=== PATIENT | male | born 1970 | race Caucasian/White ===

== ENCOUNTER → 2017-03-08 21:34 | Emergency (ER) | payer OTHER ==
[~2017-03-08 21:34] MED LIST: Midazolam 2 MG/2 ML VIAL ONE; Propofol 10 mg/ml Inj (20 ML) ONE
== END | disposition left against medical advice (07) ==
LOC: C.ER 21:34
DX: F19.10 Other psychoactive substance abuse, uncomplicated (principal); Z02.9 Encounter for administrative examinations, unspecified

== ENCOUNTER 2017-03-08 22:54 | Observation (INO) | payer SELFPAY ==
--- NOTE | 2017-03-09 01:21 | C.PDOC ---
History Of Present Illness Patient is a 46 year old male BIBA after he was found intoxicated and sleeping in the streets. Patient has no physical complaints at this time. Chief Complaint (Nursing): Substance Abuse History Per: Patient History/Exam Limitations: no limitations Onset/Duration Of Symptoms: Hrs Current Symptoms Are (Timing): Still Present Suicide/Self Injury Attempted (Context): None Modifying Factor(s): Alcohol Associated Symptoms: denies: Depression, Suicidal Thoughts, Suicidal Plan Involuntary Hold By: None Recent travel outside of the [place]: No Past Medical History Reviewed: Historical Data, Nursing Documentation, Vital Signs Vital Signs: Last Vital Signs Temp 98.4 F 03/09/17 03:16 Pulse 92 H 03/09/17 03:16 Resp 16 03/09/17 03:16 BP 116/80 03/09/17 03:16 Pulse Ox 97 03/09/17 03:16 - Medical History PMH: Cardia Arrhythmia, HTN, Hypercholesterolemia, Pneumonia - [facility] Procedures CLOSED ENDOSCOPIC BIOPSY OF LARGE INTESTINE (01/19/15) ENDOSC POLYPECTOMY OF LG INTEST (01/19/15) ESOPHAGOGASTRODUODENOSCOPY [EGD] W/CLOSED BIOPSY (01/19/15) OTHER ENDOSCOPY OF SM INTEST (12/07/14) VACCINATION NEC (01/19/15) Family History: States: Unknown Family Hx - Social History Hx Tobacco Use: No Hx Alcohol Use: Yes Hx Substance Use: No - Immunization History Hx Tetanus Toxoid Vaccination: Yes Hx Influenza Vaccination: Yes Hx Pneumococcal Vaccination: No Review Of Systems Constitutional: Negative for: Fever, Chills Gastrointestinal: Negative for: Nausea, Vomiting, Diarrhea Neurological: Positive for: Other (ETOH intoxication) ED Course And Treatment O2 Sat by Pulse Oximetry: 97 Medical Decision Making Medical Decision Makinam: Patient is walking around ED. Patient to be discharged with f/u instructions. ED OBSERVATION Discharge: Yes Date of observation admission: 03/08/17 Time of observation admission: 23:25 - Observation admission statement Patient is being placed in observation because:: Acute ETOH intoxication - Goals of Observation Goals of observation are:: Sobriety Disposition - Disposition Disposition: HOME/ ROUTINE Disposition Time: 05:10 Condition: IMPROVED - Clinical Impression Clinical Impression: Alcohol intoxication - Scribe Statement The provider has reviewed the documentation as recorded by the Scribe Mina Toledo All medical record entries made by the Scribe were at my direction and personally dictated by me. I have reviewed the chart and agree that the record accurately reflects my personal performance of the history, physical exam, medical decision making, and the department course for this patient. I have also personally directed, reviewed, and agree with the discharge instructions and disposition.
[2017-03-09 05:15] VITALS: BP 117/77; PULSE 88; RESP 19; TEMP 98.5; O2SAT 96
== END 2017-03-09 05:10 | disposition home or self-care (01) ==
LOC: C.ER 22:54 → C.9OBSV 23:15
PROVIDERS: ADMIT Emergency Medicine; ATTEND Emergency Medicine
DX: F10.229 Alcohol dependence with intoxication, unspecified (principal); I49.9 Cardiac arrhythmia, unspecified; I10 Essential (primary) hypertension; E78.00 Pure hypercholesterolemia, unspecified
CPT/HCPCS: 82948; 99284; G0378

== ENCOUNTER 2018-10-24 19:46 | Emergency (ER) | payer SELFPAY ==
--- NOTE | 2018-10-24 21:01 | C.PDOC ---
History Of Present Illness Patient is a 48 year old male [employer] who presents to the ED for alcohol abuse. As per police, patient claims he wants to sleep at [employer] and did not want to come to the ED. Patient is handcuffed for bad behavior. He has had extensive prior evaluations for alcohol abuse. He denies any SI/HI, hallucinations, CP, SOB. Time Seen by Provider: 10/24/18 20:01 Chief Complaint (Nursing): Substance Abuse History Per: Patient, EMS History/Exam Limitations: intoxication Suicide/Self Injury Attempted (Context): None Modifying Factor(s): Alcohol Involuntary Hold By: Local Law Enforcement Recent travel outside of the [place]: No Additional History Per: Patient, EMS, Law Enforcement Past Medical History Reviewed: Historical Data, Nursing Documentation, Vital Signs Vital Signs: Last Vital Signs Temp 97.2 F L 10/24/18 19:59 Pulse 122 H 10/24/18 19:59 Resp 22 10/24/18 19:59 BP 128/74 10/24/18 19:59 Pulse Ox 98 10/24/18 19:59 - Medical History PMH: Cardia Arrhythmia, HTN, Hypercholesterolemia, Pneumonia Denies: Chronic Kidney Disease Surgical History: No Surg Hx - [facility] Procedures CLOSED ENDOSCOPIC BIOPSY OF LARGE INTESTINE (01/19/15) ENDOSC POLYPECTOMY OF LG INTEST (01/19/15) ESOPHAGOGASTRODUODENOSCOPY [EGD] W/CLOSED BIOPSY (01/19/15) OTHER ENDOSCOPY OF SM INTEST (12/07/14) VACCINATION NEC (01/19/15) Family History: States: Unknown Family Hx - Social History Hx Tobacco Use: No Hx Alcohol Use: Yes Hx Substance Use: No - Immunization History Hx Tetanus Toxoid Vaccination: Yes Hx Influenza Vaccination: Yes Hx Pneumococcal Vaccination: No Review Of Systems Cardiovascular: Negative for: Chest Pain Respiratory: Negative for: Shortness of Breath Psych: Negative for: Suicidal ideation, Other (homicidal ideations or hallucinations ) Physical Exam - Physical Exam Appears: Non-toxic, No Acute Distress, Other (alcohol on breath ) Skin: Normal Color, Warm, Dry Head: Atraumatic, Normacephalic Nose: Other (dried blood in nose ) Oral Mucosa: Moist Neck: Supple Chest: Symmetrical, No Deformity Cardiovascular: Rhythm Regular, No Murmur Respiratory: Normal Breath Sounds, No Rales, No Rhonchi, No Wheezing Gastrointestinal/Abdominal: Soft, No Tenderness, No Guarding, No Rebound Extremity: Normal ROM Neurological/Psych: Oriented x3 ED Course And Treatment O2 Sat by Pulse Oximetry: 98 (on RA) Pulse Ox Interpretation: Normal Reevaluation Time: 05:42 Reassessment Condition: Improved (clincally sober) Medical Decision Making Medical Decision Making: typical alcohol abuse Disposition Doctor Will See Patient In The: Office Counseled Patient/Family Regarding: Studies Performed, Diagnosis - Disposition Disposition: HOME/ ROUTINE Disposition Time: 05:44 Condition: GOOD Forms: [employer] (Portuguese) - Clinical Impression Clinical Impression: Alcohol abuse - Scribe Statement The provider has reviewed the documentation as recorded by the Eliseoibamador Shore All medical record entries made by the Eliseoibamador were at my direction and personally dictated by me. I have reviewed the chart and agree that the record accurately reflects my personal performance of the history, physical exam, medical decision making, and the department course for this patient. I have also personally directed, reviewed, and agree with the discharge instructions and disposition.
[2018-10-25 06:55] VITALS: BP 115/72; PULSE 75; RESP 18; TEMP 98.1; O2SAT 99
== END 2018-10-25 06:40 | disposition home or self-care (01) ==
LOC: C.ER 19:46
DX: F10.10 Alcohol abuse, uncomplicated (principal); Y90.9 Presence of alcohol in blood, level not specified

== ENCOUNTER 2018-11-22 18:27 | Emergency (ER) | payer SELFPAY ==
--- NOTE | 2018-11-22 20:14 | C.PDOC ---
History Of Present Illness 48 y/o male is brought in by ambulance for public intoxication. Patient has history of same and was seen many times before, most recent was 10/24/18. Patient has no physical complaints at this time. Time Seen by Provider: 11/22/18 18:33 Chief Complaint (Nursing): Substance Abuse History Per: EMS History/Exam Limitations: no limitations Onset/Duration Of Symptoms: Hrs Current Symptoms Are (Timing): Still Present Past Medical History Reviewed: Historical Data, Nursing Documentation, Vital Signs Vital Signs: Last Vital Signs Temp 98.1 F 11/22/18 18:36 Pulse 95 H 11/22/18 18:36 Resp 14 11/22/18 18:36 BP 126/77 11/22/18 18:36 Pulse Ox 98 11/22/18 18:36 - Medical History PMH: Cardia Arrhythmia, HTN, Hypercholesterolemia, Pneumonia Denies: Chronic Kidney Disease - [facility] Procedures CLOSED ENDOSCOPIC BIOPSY OF LARGE INTESTINE (01/19/15) ENDOSC POLYPECTOMY OF LG INTEST (01/19/15) ESOPHAGOGASTRODUODENOSCOPY [EGD] W/CLOSED BIOPSY (01/19/15) OTHER ENDOSCOPY OF SM INTEST (12/07/14) VACCINATION NEC (01/19/15) Family History: States: No Known Family Hx - Social History Hx Tobacco Use: No Hx Alcohol Use: Yes Hx Substance Use: No - Immunization History Hx Tetanus Toxoid Vaccination: Yes Hx Influenza Vaccination: Yes Hx Pneumococcal Vaccination: No Review Of Systems Except As Marked, All Systems Reviewed And Found Negative. Constitutional: Negative for: Fever, Chills Psych: Positive for: Other (alcohol intoxication) Physical Exam - Physical Exam Appears: Non-toxic, No Acute Distress Skin: Warm, Dry Head: Atraumatic, Normacephalic Eye(s): bilateral: Normal Inspection Oral Mucosa: Moist, Other (alcohol on breath) Neck: Supple Cardiovascular: Rhythm Regular, No Murmur Respiratory: Normal Breath Sounds, No Rales, No Rhonchi, No Wheezing Extremity: Bilateral: Atraumatic Neurological/Psych: Oriented x3, No Normal Speech (slurred speech) ED Course And Treatment O2 Sat by Pulse Oximetry: 98 (RA) Pulse Ox Interpretation: Normal Reevaluation Time: 21:31 Reassessment Condition: Improved Medical Decision Making Medical Decision Making: alcohol abuse Disposition Doctor Will See Patient In The: Office Counseled Patient/Family Regarding: Studies Performed, Diagnosis - Disposition Disposition: HOME/ ROUTINE Disposition Time: 21:31 Condition: GOOD Forms: [facility] (Swiss) - Clinical Impression Clinical Impression: Alcohol abuse - Scribe Statement The provider has reviewed the documentation as recorded by the Salina Burt Provider Attestation: All medical record entries made by the Salina were at my direction and personally dictated by me. I have reviewed the chart and agree that the record accurately reflects my personal performance of the history, physical exam, medical decision making, and the department course for this patient. I have also personally directed, reviewed, and agree with the discharge instructions and disposition.
[2018-11-22 21:56] VITALS: BP 132/80; PULSE 96; RESP 16; TEMP 97.6; O2SAT 96
== END 2018-11-22 23:00 | disposition home or self-care (01) ==
LOC: C.ER 18:27
DX: F10.10 Alcohol abuse, uncomplicated (principal); Y90.9 Presence of alcohol in blood, level not specified

== ENCOUNTER 2019-01-25 20:43 | Emergency (ER) | payer MEDICAID, OTHER ==
[2019-01-25 21:09] VITALS: O2SAT 99
[2019-01-25] MEDS ORDERED: Sodium Chloride 0.9% 1,000 ML IV ONE ×2 (21:13→21:14)
--- NOTE | 2019-01-25 21:16 | C.PDOC ---
History Of Present Illness 48-year-old male presents to the ED c/o upper abdominal pain and vomiting which began earlier today. Patient has a history of alcohol abuse and gastritis, and states he has been drinking heavily. Patient denies fever, chills. Chief Complaint (Nursing): Abdominal Pain History Per: Patient History/Exam Limitations: no limitations Onset/Duration Of Symptoms: Hrs Current Symptoms Are (Timing): Still Present Location Of Pain/Discomfort: Epigastric Quality Of Discomfort: "Pain" Associated Symptoms: Vomiting. denies: Fever, Chills Additional History Per: Patient Past Medical History Reviewed: Historical Data, Nursing Documentation, Vital Signs Vital Signs: Last Vital Signs Temp 98.3 F 01/25/19 21:06 Pulse 98 H 01/25/19 21:06 Resp 20 01/25/19 21:06 BP 163/99 H 01/25/19 21:06 Pulse Ox 99 01/25/19 21:06 Primary Care Provider: FAMILY PROVIDER,NO - Medical History PMH: Cardia Arrhythmia, HTN, Hypercholesterolemia, Pneumonia Denies: Chronic Kidney Disease Surgical History: No Surg Hx - [facility] Procedures CLOSED ENDOSCOPIC BIOPSY OF LARGE INTESTINE (01/19/15) ENDOSC POLYPECTOMY OF LG INTEST (01/19/15) ESOPHAGOGASTRODUODENOSCOPY [EGD] W/CLOSED BIOPSY (01/19/15) OTHER ENDOSCOPY OF SM INTEST (12/07/14) VACCINATION NEC (01/19/15) Family History: States: Unknown Family Hx - Social History Hx Tobacco Use: No Hx Alcohol Use: Yes Hx Substance Use: No - Immunization History Hx Tetanus Toxoid Vaccination: Yes Hx Influenza Vaccination: Yes Hx Pneumococcal Vaccination: No Review Of Systems Constitutional: Negative for: Fever, Chills Gastrointestinal: Positive for: Vomiting, Abdominal Pain Physical Exam - Physical Exam Appears: Non-toxic, No Acute Distress Skin: Normal Color, Warm, Dry Head: Atraumatic, Normacephalic Eye(s): bilateral: Normal Inspection Oral Mucosa: Moist Neck: Supple Chest: Symmetrical, No Deformity, No Tenderness Cardiovascular: Rhythm Regular, No Murmur Respiratory: Normal Breath Sounds, No Rales, No Rhonchi, No Wheezing Gastrointestinal/Abdominal: Soft, Tenderness (epigastric ), No Guarding, No Rebound Extremity: Normal ROM, Capillary Refill (less than 2 seconds ) Neurological/Psych: Oriented x3, Normal Speech, Normal Cognition ED Course And Treatment - Laboratory Results Result Diagrams: 01/25/19 21:33 01/25/19 21:33 O2 Sat by Pulse Oximetry: 99 (on RA) Pulse Ox Interpretation: Normal Progress Note: Bloodwork, urinalysis, and CT A/P ordered. Pepcid IVP, Zofran IVP and IV Fluids given. Disposition Counseled Patient/Family Regarding: Diagnosis - Disposition Referrals: at [facility] [Outside] Disposition: HOME/ ROUTINE Disposition Time: 02:09 Condition: STABLE Prescriptions: Dicyclomine [Bentyl] 10 mg PO TID #20 cap Famotidine [Pepcid] 20 mg PO BID #20 tab Instructions: Gastritis (DC), Hiatal Hernia (DC), Inflammatory Bowel Disease (DC) Forms: [employer] (Greek) - POA Present On Arrival: None - Clinical Impression Clinical Impression: Abdominal pain, Gastritis, Enteritis, Hiatal hernia - Scribe Statement The provider has reviewed the documentation as recorded by the Scribe (Char Atkins) Provider Attestation: All medical record entries made by the Scribe were at my direction and personally dictated by me. I have reviewed the chart and agree that the record accurately reflects my personal performance of the history, physical exam, medical decision making, and the department course for this patient. I have also personally directed, reviewed, and agree with the discharge instructions and disposition.
[2019-01-25] MEDS ORDERED: Sodium Chloride 0.9% 1,000 ML ONE (21:34)
[2019-01-25 21:43] LABS: BASO % 0.7 % (0.0-2.0); EOS % 0.3 % (0.0-4.0); HEMOGLOBIN 14.7 g/dL (12.0-18.0); MEAN CELL VOLUME 95.2 fL (80.0-94.0); MEAN CORPUSCULAR HGB CONC 33.6 g/dL (33.0-37.0); MEAN PLATELET VOLUME 7.8 fL (7.2-11.7); MONO # 0.4 K/uL (0.0-0.8); MONO % 9.7 % (0.0-10.0); NEUT # 1.8 K/uL (1.8-7.0); NEUT % 42.3 % (50.0-75.0); NRBC % 0.1 % (0.0-2.0); RBC 4.6 Mil/uL (4.40-5.90); RED CELL DISTRIBUTION WIDTH 13.5 % (11.5-14.5); WHITE BLOOD COUNT 4.2 K/uL (4.8-10.8)
[2019-01-25 21:44] LABS: URINE BILIRUBIN NEGATIVE (NEGATIVE); URINE BLOOD NEGATIVE (NEGATIVE); URINE CLARITY Clear (Clear); URINE COLOR Straw (YELLOW); URINE GLUCOSE (UA) NORMAL (Normal); URINE LEUKOCYTE ESTERASE NEG Leu/uL (Negative); URINE PROTEIN NEGATIVE (NEGATIVE); URINE UROBILINOGEN NORMAL mg/dL (0.2-1.0)
[2019-01-25 21:52] LABS: INR 1.1; PROTHROMBIN TIME 11.9 SECONDS (9.7-12.2)
[2019-01-25 21:55] LABS: ALB/GLOB RATIO 1.5 (1.0-2.1); ALBUMIN 4.8 g/dL (3.5-5.0); ALT/SGPT 45 U/L (21-72); AST/SGOT 66 U/L (17-59); BLOOD UREA NITROGEN 15 mg/dL (9-20); GFR NON-AFRICAN AMERICAN > 60; LIPASE 233 U/L (23-300)
[2019-01-25 21:58] LABS: BARBITURATES, UR NEGATIVE (NEGATIVE); BENZODIAZEPINES, UR NEGATIVE (NEGATIVE); OPIATES, UR NEGATIVE (NEGATIVE); PHENCYCLIDINE, UR NEGATIVE (NEGATIVE)
[2019-01-25] MEDS ORDERED: Iodixanol 320 MG/ML 100 ML BOTTLE IV ONE (22:53)
[2019-01-26 02:32] VITALS: BP 119/76; PULSE 71; RESP 18; TEMP 98.2
--- NOTE | 2019-01-26 09:22 | CT ---
Date of service: 01/25/2019 PROCEDURE: CT Abdomen and Pelvis with contrast HISTORY: Upper abdominal pain/vomiting COMPARISON: None TECHNIQUE: CT scan of the abdomen and pelvis was performed after administration of intravenous contrast. Oral contrast was not administered. Coronal and sagittal reformatted images were obtained. Contrast dose: 100 mL Visipaque 320 Radiation dose: Total exam DLP = 571.89 mGy-cm. This CT exam was performed using one or more of the following dose reduction techniques: Automated exposure control, adjustment of the mA and/or kV according to patient size, and/or use of iterative reconstruction technique. FINDINGS: LOWER THORAX: The visualized lungs are clear. LIVER: Mild hepatomegaly and fatty liver. Normal homogeneous enhancement. No gross lesion or ductal dilatation. GALLBLADDER AND BILE DUCTS: Well distended. No calcified gallstones, wall thickening or pericholecystic fluid. PANCREAS: Normal in size with homogeneous enhancement. No gross lesion or ductal dilatation. SPLEEN: Normal in size and appearance. ADRENALS: No discrete nodule. KIDNEYS AND URETERS: Normal in size with homogeneous enhancement. No hydronephrosis. No solid mass. VASCULATURE: No aortic aneurysm. There are no aortic atherosclerotic calcifications or mural plaque present. BOWEL: Evaluation of the bowel is limited in the absence of oral contrast. The small bowel loops are normal in caliber. The colon is grossly normal in appearance. No bowel wall thickening or obstruction. APPENDIX: Normal appendix. PERITONEUM: No free fluid. No free air. LYMPH NODES: No enlarged lymph nodes. BLADDER: Well distended and normal in appearance. REPRODUCTIVE: Mild enlargement of the prostate gland with central coarse calcifications. BONES: No acute fracture. 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 OTHER FINDINGS: Small right and large left fat containing inguinal hernia. There is a small sliding hiatal hernia. IMPRESSION: Findings are most compatible with acute nonspecific infectious/inflammatory enteritis. No bowel obstruction. Mild hepatomegaly and fatty liver. Mild enlargement of the prostate gland. Please correlate with PSA levels. A preliminary report was provided by [employer] ([email or web address]).
== END 2019-01-26 02:54 | disposition home or self-care (01) ==
LOC: C.ER 20:43
DX: K29.70 Gastritis, unspecified, without bleeding (principal); K52.9 Noninfective gastroenteritis and colitis, unspecified; K44.9 Diaphragmatic hernia without obstruction or gangrene
CPT/HCPCS: 74177; 80053; 80320; 80324; 80345; 80346; 80349; 80353; 80358; 80361; 81001; 83690; 83992; 85025; 85610; 85730; 96361; 96374; 96375; 99284; J2405; J7030; Q9967

== ENCOUNTER 2019-01-30 16:53 | Emergency (ER) | payer OTHER ==
[2019-01-30 16:56] VITALS: BMI 24.1
[2019-01-30] MEDS ORDERED: Sodium Chloride 0.9% 1,000 ML IV ONE (18:16)
[2019-01-30] MEDS ORDERED: Multivitamin (MVI) 10 ML, Thiamine 100 MG, Folic Acid 1 MG in Sodium Chloride 0.9% 1,00... IV ONE (18:18)
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
[2019-01-30] MEDS ORDERED: Sodium Chloride 0.9% 1,000 ML ONE (19:00)
[2019-01-30 19:02] LABS: BASO % 0.6 % (0.0-2.0); EOS % 0.2 % (0.0-4.0); HEMOGLOBIN 14.8 g/dL (12.0-18.0); LYMPH # 1.2 K/uL (1.0-4.3); LYMPH % 29.9 % (20.0-40.0); MEAN CELL VOLUME 92.8 fL (80.0-94.0); MEAN CORPUSCULAR HGB CONC 34.4 g/dL (33.0-37.0); MEAN PLATELET VOLUME 7.6 fL (7.2-11.7); MONO # 0.3 K/uL (0.0-0.8); MONO % 7.5 % (0.0-10.0); NEUT # 2.6 K/uL (1.8-7.0); NEUT % 61.8 % (50.0-75.0); NRBC % 0.3 % (0.0-2.0); RBC 4.64 Mil/uL (4.40-5.90); RED CELL DISTRIBUTION WIDTH 13.7 % (11.5-14.5); WHITE BLOOD COUNT 4.2 K/uL (4.8-10.8)
[2019-01-30 19:10] LABS: INR 1.1; PROTHROMBIN TIME 12.2 SECONDS (9.7-12.2)
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
[2019-01-30 19:18] LABS: ALB/GLOB RATIO 1.5 (1.0-2.1); ALBUMIN 4.6 g/dL (3.5-5.0); ALT/SGPT 64 U/L (21-72); AST/SGOT 77 U/L (17-59); BLOOD UREA NITROGEN 12 mg/dL (9-20); CALCIUM 8.3 mg/dl (8.6-10.4); GFR NON-AFRICAN AMERICAN > 60
[2019-01-30 19:51] LABS: BARBITURATES, UR NEGATIVE (NEGATIVE); BENZODIAZEPINES, UR NEGATIVE (NEGATIVE); OPIATES, UR NEGATIVE (NEGATIVE); PHENCYCLIDINE, UR NEGATIVE (NEGATIVE)
[2019-01-30] MEDS ORDERED: Sodium Chloride 0.9% 500 ML IV ONE (23:46)
[2019-01-31 00:14] VITALS: TEMP 98.3
[2019-01-31 01:10] VITALS: BP 138/75; PULSE 100; RESP 16
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
[2019-02-05 18:14] VITALS: O2SAT 96
== END 2019-01-31 01:10 | disposition home or self-care (01) ==
LOC: C.ER 16:53
DX: S02.2XXA Fracture of nasal bones, initial encounter for closed fracture (principal); X58.XXXA Exposure to other specified factors, initial encounter; F10.10 Alcohol abuse, uncomplicated; Y90.8 Blood alcohol level of 240 mg/100 ml or more
CPT/HCPCS: 70450; 70486; 71045; 80053; 80320; 80324; 80345; 80346; 80349; 80353; 80358; 80361; 83992; 85025; 85610; 85730; 96361; 96374; 99285; J3411; J7030